=== PATIENT | female | born 1950 | race Caucasian/White ===

== ENCOUNTER → 2017-06-16 | Outpatient (CLI) | payer BC, MEDICARE ==
[~2017-06-16] MED LIST: DULO60CA7 PO; LANS30CA PO; MULT-224 PO; SUCR1ORA5 PO
== END | disposition home or self-care (01) ==
LOC: MERGE 06-09 09:00 → CFH 08:44
PROVIDERS: ATTEND Thoracic Surgery (Cardiothoracic Vascular Surgery)
DX: K21.9 Gastro-esophageal reflux disease without esophagitis (principal); Z98.84 Bariatric surgery status; Q40.8 Other specified congenital malformations of upper alimentary tract
CPT/HCPCS: 74241